=== PATIENT | male | born 1960 | race Caucasian/White ===

== ENCOUNTER 2024-11-30 16:38 | Emergency (ER) | payer OTHER ==
[~2024-11-30] VITALS: Wt 99.8 kg
[2024-11-30 17:15] LABS: BASO # 0.0 10*3/uL (0.0-0.1); BASO % 0.2 % (0.0-1.0); EOS # 0.2 10*3/uL (0.0-0.4); EOS % 1.7 % (1.0-4.0); MEAN CELL VOLUME 92.8 fl (80.0-94.0); MEAN CORPUSCULAR HGB 30.3 pg (27.0-31.0); MEAN PLATELET VOLUME 8.4 fl (9.6-12.3); MONO # 0.9 10*3/uL (0.1-1.0); MONO % 10.5 % (3.0-9.0); NEUT # 5.0 10*3/uL (2.3-7.9); NEUT % 56.8 % (47.0-73.0); NUCLEATED RED BLOOD CELL 0.0 % (0.0-0.0); NUCLEATED RED BLOOD CELL 0.0 10*3/uL (0.0-0.0); PLATELET COUNT AUTOMATED 228 10*3/uL (130-400); RED CELL DISTRI WIDTH 13.7 % (0-14.5)
[2024-11-30 17:29] LABS: BUN 18.0 mg/dl (9-23)
[2024-11-30] MEDS ORDERED: SODIUM CHLORIDE 0.9% 1,000 ML IV ONE (18:10)
[2024-11-30] MEDS ORDERED: CEPHALEXIN500 M1 PO (18:47)
== END 2024-11-30 19:34 | disposition home or self-care (01) ==
LOC: ED 16:38
PROVIDERS: Nurse Practitioner Family
DX: L03.115 Cellulitis of right lower limb (principal); I87.2 Venous insufficiency (chronic) (peripheral)